=== PATIENT | male | born 1995 | race Caucasian/White ===

== ENCOUNTER 2017-07-09 17:32 | Emergency (ER) | payer SELFPAY ==
[2017-07-09 17:39] VITALS: BP 111/86; PULSE 77; TEMP 98.7; BMI 27.3
--- NOTE | 2017-07-09 17:59 | PDOC ---
History of Present Illness - General Chief Complaint: Rectal Bleed Stated Complaint: RECTAL BLEED Time Seen by Provider: 07/09/17 17:59 - History of Present Illness Initial Comments: 21 year old healthy male presenting with rectal bleeding and constipation. States that he has had bright red blood per rectum over the past month inconsistently particularly when he strains to use the toilet. He went to another ED where they did not find hemorrhoids or a positive hemoccult and was referred for a GI appointment in September for colonoscopy/ endoscopy. Denies fevers, chills , nausea, vomiting, diarrhea, or other sick symptoms. 07/09/17 19:57 Past History - Past Medical History Allergies/Adverse Reactions: Allergies Allergy/AdvReac Type Severity Reaction Status Date / Time No Known Allergies Allergy Verified 07/09/17 17:39 Home Medications: Ambulatory Orders No Home Medications 0 dose .ROUTE UTDICT 07/18/13 Sennosides/Docusate Sodium [Senna Laxative Tablet] 1 each PO BID PRN #60 tablet 07/09/17 Other medical history: Hemorrhoids - Immunization History TDAP Vaccination: No Immunization Up to Date: Yes - Suicide/Smoking/Psychosocial Hx Smoking Status: No Smoking History: Never smoked Have you smoked in the past 12 months: No Number of Cigarettes Smoked Daily: 0 Information on smoking cessation initiated: No Hx Alcohol Use: Yes (occassional alchohol) Drug/Substance Use Hx: No Substance Use Type: None Review of Systems - Review of Systems Constitutional: No: Chills, Diaphoresis, Fever HEENTM: No: Eye Pain, Blurred Vision Respiratory: No: Cough, Shortness of Breath Cardiac (ROS): No: Chest Pain, Edema, Lightheadedness ABD/GI: Yes: Blood Streaked Bowels, Constipated, Rectal Bleeding. No: Diarrhea , Nausea, Poor Appetite : No: Burning, Dysuria, Discharge, Hematuria, Incontinence Integumentary: No: Bruising, Change in Color Neurological: No: Headache, Numbness, Paresthesia Hematologic/Lymphatic: No: Anemia, Easy Bleeding *Physical Exam - Vital Signs Last Vital Signs Temp Pulse Resp BP Pulse Ox 98.7 F 77 16 111/86 100 07/09/17 17:36 07/09/17 17:36 07/09/17 17:36 07/09/17 17:36 07/09/17 17:36 - Physical Exam General Appearance: Yes: Appropriately Dressed. No: Apparent Distress HEENT: positive: EOMI, ORLY, Normal ENT Inspection, Normal Voice Neck: positive: Trachea midline, Normal Thyroid, Supple. negative: Tender, Rigid Respiratory/Chest: positive: Lungs Clear, Normal Breath Sounds. negative: Chest Tender, Respiratory Distress, Accessory Muscle Use Cardiovascular: positive: Regular Rhythm, Regular Rate, S1, S2 Gastrointestinal/Abdominal: positive: Normal Bowel Sounds, Flat, Soft. negative : Tender Rectal Exam: positive: heme negative stool, normal exam, normal rectal tone, other. negative: hemorrhoids (Normal rectal exam without obvious patholoy or blood in rectum.) Musculoskeletal: positive: Normal Inspection. negative: CVA Tenderness Extremity: positive: Normal Capillary Refill, Normal Inspection, Normal Range of Motion Integumentary: positive: Normal Color, Dry, Warm Neurologic: positive: Fully Oriented, Alert, Normal Mood/Affect, Normal Response , Motor Strength /5 ED Treatment Course - LABORATORY CBC & Chemistry Diagram: 07/09/17 18:20 07/09/17 18:20 Medical Decision Making - Medical Decision Making 21 year old male with constipation and occasional rectal bleeding. H&H and rectal exam WNL. Patient to actively bleeding in our department. Most likely internal hemorrhoid. Sent out with GI referral for colonoscopy and senna for constipation. 07/12/17 19:41 *DC/Admit/Observation/Transfer Diagnosis at time of Disposition: Rectal bleed - Discharge Dispostion Disposition: HOME Admit: No - Prescriptions Prescriptions: Sennosides/Docusate Sodium [Senna Laxative Tablet] 1 each PO BID PRN #60 tablet PRN Reason: Constipation - Referrals Referrals: Butch Levi DO [Staff Physician] - - Patient Instructions Printed Discharge Instructions: DI for Rectal Bleeding, DI for Hemorrhoids Additional Instructions: Please call Dr. Miller to schedule an earlier GI appointment. Please take the laxative we prescribed if you have hard stools because straining on the toilet can make your bleeding worse.
--- NOTE | 2017-07-09 18:01 | PDOC ---
Attending Attestation - Resident Resident Name: tashi - MONICA HPI: 07/09/17 19:19 21 yo male p/w rectal blood with defecation, no abd pain,no fever,no vomiting - Physicial Exam PE: 07/09/17 19:19 agree with residents notes - Medical Decision Making 07/09/17 19:20 reviews labs, No anemia pt has an appt w GI 07/09/17 20:16 no anemia, stool occult blood NEGATIVE, discharge home to f/u with GI
[2017-07-09 18:37] LABS: BASOPHIL 0.7 % (0-2.0); EOSINOPHIL 2.5 % (0-4.5); MCH 29.4 pg (25.7-33.7); MCHC 34.2 g/dl (32.0-35.9); MEAN CELL VOLUME 85.7 fl (80-96); MEAN PLT VOLUME 9.4 fl (7.5-11.1); NEUTROPHILS 57.3 % (42.8-82.8); PLATELET COUNT 237 K/MM3 (134-434); RDW 12.7 % (11.9-15.9); WHITE BLOOD COUNT 7.5 K/mm3 (4.0-10.0)
[2017-07-09 18:59] LABS: INR 1.21 (0.82-1.09); PROTHROMBIN TIME (PATIENT) 13.4 SEC (9.98-11.88)
[2017-07-09 19:06] LABS: ANION GAP 5 (8-16); BILIRUBIN,TOTAL 0.6 mg/dL (0.2-1.0); CALCIUM 9.1 mg/dL (8.5-10.1); CO2 30 mmol/L (21-32); CREATININE 0.9 mg/dL (0.7-1.3); GLUCOSE,RANDOM 94 mg/dL (74-106); SGOT/AST 21 U/L (15-37); SGPT/ALT 23 U/L (12-78); TOT PROT 7.4 g/dl (6.4-8.2)
[2017-07-09 19:07] LABS: ALK PHOS 72 U/L (45-117)
== END 2017-07-09 20:27 | disposition home or self-care (01) ==
LOC: JER 17:32
DX: K62.5 Hemorrhage of anus and rectum (principal)
CPT/HCPCS: 36415; 80053; 82272; 83690; 85025; 85610; 86850; 86900; 86901; 99283-25

== ENCOUNTER 2023-07-27 09:38 | Observation (INO) | payer SELFPAY ==
[2023-07-27] MEDS ORDERED: SODIUM CHLORIDE 0.9% 500 ML INFUS.BAG IV ONE ×2 (10:11→13:12)
[2023-07-27 10:19] VITALS: BMI 16.2
[2023-07-27] MEDS ORDERED: ACETAMINOPHEN 1000 MG/100 ML BAG IVPB ONE (10:29)
[2023-07-27 11:51] LABS: HEMATOCRIT 50.3 % (35.4-49); HEMOGLOBIN 17.7 GM/dL (11.7-16.9); MCH 29.8 pg (25.7-33.7); MCHC 35.3 g/dl (32.0-35.9); MEAN CELL VOLUME 84.6 fl (80-96); MEAN PLT VOLUME 9.2 fl (7.5-11.1); PLATELET COUNT 518 10^3/uL (134-434); RBC 5.94 M/mm3 (4.00-5.60); RDW 12.5 % (11.9-15.9); WHITE BLOOD COUNT 17.4 K/mm3 (4.0-10.0)
[2023-07-27] MEDS ORDERED: ACETAMINOPHEN INJECTION 100 ML IVPB ONE (11:51)
[2023-07-27] MEDS ORDERED: ONDANSETRON 4 MG/2 ML VIAL IVPUSH ONE (11:52)
[2023-07-27] MEDS ORDERED: ONDANSETRON 4 MG/2 ML VIAL ONE (11:53)
[2023-07-27 11:56] LABS: INR 1.32 (0.83-1.09); PROTHROMBIN TIME (PATIENT) 15.3 SEC (9.7-13.0)
[2023-07-27 12:30] LABS: ERYTHROCYTE SEDIMENTATION RATE 12 mm/hr (0-10)
[2023-07-27 12:43] LABS: POTASSIUM 4.4 mmol/L (3.5-5.1)
[2023-07-27 12:46] LABS: ALBUMIN 3.6 g/dl (3.4-5.0); BLOOD UREA NITROGEN 13.7 mg/dL (7-18); CALCIUM 9.6 mg/dL (8.5-10.1)
[2023-07-27 12:51] LABS: BILIRUBIN,TOTAL 0.9 mg/dL (0.2-1); TOT PROT 7.7 g/dl (6.4-8.2)
[2023-07-27] MEDS ORDERED: methylPREDNISolone NA SUCC 40 MG/1 ML VIAL IVPUSH ONE (14:09)
[2023-07-27] MEDS ORDERED: methylPREDNISolone NA SUCC 40 MG/1 ML VIAL ONE (14:21)
[2023-07-27] MEDS ORDERED: methylPREDNISolone NA SUCC 125 MG/2 ML VIAL IVPB ONE (14:42)
[2023-07-27 15:48] VITALS: BP 119/71; PULSE 92; RESP 20; TEMP 98.7
== END 2023-07-27 19:51 | disposition home or self-care (01) ==
LOC: JER 09:38 → JERBED 15:19
PROVIDERS: ADMIT Internal Medicine; ATTEND Internal Medicine
CPT/HCPCS: 36415; 80053; 83690; 85027; 85610; 85651; 86140; 86850; 86900; 86901; 93005; 93010; 99285-25; G0378